=== PATIENT | male | born 1970 | race Caucasian/White ===

== ENCOUNTER 2024-01-27 14:17 | Emergency (ER) | payer OTHER, SELFPAY ==
[2024-01-27 14:25] VITALS: BP 152/85; BMI 29.3
[2024-01-27 14:39] LABS: % Basophils 0.3 % (0-2); % Eosinophils 1.1 % (0-6); % Immature Granulocytes 0.2 % (0-0.5); % Lymphocytes 34.7 % (20.5-51.1); % Monocytes 10.1 % (1.7-9.3); % Neutrophils 53.6 % (42.2-75.2); Absolute Eosinophils 0.1 10^3/uL (0-0.7); Absolute Lymphocytes 2.2 10^3/uL (1.2-3.4); Absolute Monocytes 0.7 10^3/uL (0.1-0.6); Absolute Neutrophils 3.4 10^3/uL (1.4-6.5); Hematocrit 41.2 % (39.0-52.0); Hemoglobin 14.2 g/dL (13.0-18.0); Mean Corp Hgb Conc. 34.5 g/dL (33.0-37.0); Mean Corpuscular Hgb 29.8 pg (27.0-31.0); Mean Corpuscular Volume 86.6 fL (80.0-94.0); Mean Platelet Volume 8.8 fL (7.4-10.4); Nucleated Red Blood Cells % 0 % (-); Platelet Count 254 10^3/uL (130-400); Red Blood Cell Count 4.76 10^6/uL (4.70-6.10); Red Cell Dist. Width 12.9 % (11.5-14.5); White Blood Cell Count 6.4 10^3/uL (4.8-10.8)
[2024-01-27 14:56] LABS: ALT (SGPT) 20 U/L (0-50); AST (SGOT) 28 U/L (17-59); Albumin 4.7 g/dl (3.5-5.0); Alkaline Phosphatase 59 U/L (38-126); Blood Urea Nitrogen 19 mg/dl (9-20); Calcium 9.6 mg/dl (8.4-10.2); Carbon Dioxide 30 mmol/L (22-30); Chloride 103 mmol/L (98-107); Estimated Creatinine Clearance 84 ml/min; Glucose 107 mg/dl (70-99); Potassium 5.3 mmol/L (3.5-5.1); Sodium 138 mmol/L (135-145); Total Protein 7.6 g/dl (6.3-8.2); eGFR > 60.00
[2024-01-27 15:02] LABS: Troponin I < 0.012 ng/ml
--- NOTE | 2024-01-27 17:30 | ED.GENMED ---
History of Present Illness
General
Chief Complaint: Chest Pain
Source: patient
Time Seen by Provider: 01/27/24 17:18
History of Present Illness
History of Present Illness:
This patient is a very pleasant 53-year-old male with complaints of 'pain under my rib cage', referring to the left anterior chest described as 'burning' also described as tight' that comes and goes lasting 20 to 30 minutes at a time and then fully
resolving. Sometimes he feels better when he just lays down, and says it will go away. He denies associated dyspnea, diaphoresis, back pain, neck pain, dizziness, jaw pain, or other abnormalities. Patient also reports headache, described as
left-sided, behind the eye
Past History
Past History
ED Past Medical History: None
ED Past Surgical History: Urological
Social History
Tobacco: Non-smoker
Alcohol: Occasional
Drug: None
Personal:
Living: with family
Phy Exam
Physical Exam
Physical Exam:
GENERAL: Alert , in no apparent distress
EYE: pupils equal and reactive, EOMI, no nystagmus, no photophobia
NECK: Supple, no significant adenopathy.
ENT: o/p clr, mmm.
CARDIAC: Regular rate and rhythm .
LUNGS: Clear breath sounds bilaterally, no acute respiratory distress, no wheezes/rales/rhonchi
ABDOMEN: Soft, without focal tenderness, no r/g, no cvat
NEUROLOGICAL: Alert and oriented, no focal neuro deficits, [id number] normal, motor 5 out of 5, sensory intact, cranial nerves II through XII intact
SKIN: Warm and dry, skin intact.
MUSCULOSKELETAL: No edema, well perfused.
PSYCH: Normal and appropriate interaction.
Scores
Heart Score for Chest Pain Patients
STEMI patient?: Not applicable
Course
Orders/Labs/Results
Orders:
Orders
01/27/24 14:19
ECG [Electrocardiogram (*1)] Urgent
Reason for Study: Chest Pain
01/27/24 14:20
EKG- Treatment ONCE
01/27/24 14:[address] [CT Head W/o Iv Contrast] Urgent
Comment:
Reason For Exam: pain
01/27/24 14:33
Complete Blood Count/With Diff Urgent
Comprehensive Metabolic Panel Urgent
Troponin I Urgent
01/27/24 17:43
Troponin I Urgent
Abnormal Lab Results
01/27/24
14:33
Absolute Monos (auto) 0.7 H 10^3/uL
(0.1-0.6)
Monocytes % 10.1 H %
(1.7-9.3)
Potassium 5.3 H mmol/L
(3.5-5.1)
Glucose 107 H mg/dl
(70-99)
01/27/24 14:33
01/27/24 14:33
Vital Signs
Initial and Last Documented VS:
Initial Vital Signs
Temp Pulse Resp BP Pulse Ox
98.1 F 69 18 152/85 100
01/27/24 14:25 01/27/24 14:25 01/27/24 14:25 01/27/24 14:25 01/27/24 14:25
Last Documented Vital Signs
Temp Pulse Resp BP Pulse Ox
98.1 F 86 18 132/86 100
01/27/24 14:25 01/27/24 19:01 01/27/24 14:25 01/27/24 19:01 01/27/24 19:01
*Critical Care Note
Total Time (30-74mins, 75-104mins- exclusive of procedures): Not Applicable
Update Note
Update Note:
Patient presents to the Emergency Department with __chest pain and headache
Number and Complexity of Problems Addressed at the Encounter
� Chronic conditions affecting care:
� Acute Exacerbation and/or Progression of Chronic Illness:
� Differential Diagnosis includes: But not limited to muscular strain, tension, ACS, migraine, etc. etc.
Amount and/or Complexity of Data to be Reviewed and Analyzed
� I performed an independent evaluation of and my interpretation is:
EKG: Read by me, normal sinus rhythm, normal rate, no acute ischemia
CT: Read by radiology NAD
Xrays:
Laboratory Studies: Generally unremarkable, first troponin normal, repeat troponin NEG
Other:
� Review of other/old records reveals:
� Clinical information was obtained by an independent historian:
� Prescriptions/Medications Considered but not given:
� Further testing considered but not performed:
Risk of Complications and/or Morbidity or Mortality of Patient Management
� Social determinants of health affecting care:
� Discussion with other providers (PCP, Hospitalists, Consultants, etc):
� Escalation of care including admission/observation vs risk of discharge considered: pt with several complaints, w/u here unremarkable, doubt acute neurologic process (ex. tia/cva/sah, etc based on hx, nl exam,etc.) or
acs/dissection/pe etc.
ED Attending Note
-
Portions of this chart may have been created with voice recognition software.� Occasional wrong word or��sound alike� substitutions may have occurred due to the inherent limitations of voice recognition software.
Discharge Plan
Departure
Patient Disposition: Home (Routine Discharge)
Date of Disposition: 01/27/24
Time of Disposition: 18:49
Patient with high blood pressure during this ER visit?: Yes
Condition: Good
Discharge Problem:
Headache, Chest pain
Instructions: Headache, Adult ED, Chest Pain PCP Follow Up, BLOOD PRESSURE
Referrals:
Syeda Westfall CRNP [Family Provider] - Follow up in 2-3 days
Activity Restrictions/Additional Instructions:
IF YOU DEVELOP RECURRENT/NEW CHEST PAIN OR HEADACHE, NUMBNESS, WEAKNESS, CHANGE IN VISION/SPEECH/BALANCE, FEVER, VOMITING, OR OTHER WORRISOME SIGNS, GO TO THE ER IMMEDIATELY!
Interventions
Interventions:
*Risk Screen - Suicide Last Done: 01/27/24 14:25
*General Assessment Last Done: 01/27/24 17:45
*Neglect/Abuse Screening Last Done: 01/27/24 14:25
ED- Fall Risk Assessment Last Done: 01/27/24 14:25
*Nursing Disposition Last Done: 01/27/24 19:01
ED- Cardiac Assessment Last Done: 01/27/24 17:44
Discharge Date and Time
Discharge Date/Time: 01/27/24 19:02
Print Language: INDONESIAN
[2024-01-27 17:45] VITALS: BP 160/106
[2024-01-27 18:14] LABS: Troponin I < 0.012 ng/ml
[2024-01-27 19:01] VITALS: BP 132/86
== END 2024-01-27 19:02 | disposition home or self-care (01) ==
LOC: EMR 14:17
PROVIDERS: Student in an Organized Health Care Education/Training Program; EMERGENCY PHYSICIAN Emergency Medicine; FAMILY PHYSICIAN Nurse Practitioner Family
DX: R51.9 Headache, unspecified (principal); R07.89 Other chest pain; Z86.73 Personal history of transient ischemic attack (TIA), and cerebral infarction without residual deficits
CPT/HCPCS: 99284; 70450; 80053; 84484; 85025; 93005

== ENCOUNTER → 2024-03-15 09:57 | Outpatient (REF) | payer OTHER, SELFPAY | LOC: WDC 09:57 | PROVIDERS: ATTENDING PHYSICIAN Family Medicine | DX: R59.0 Localized enlarged lymph nodes (principal); I88.9 Nonspecific lymphadenitis, unspecified; M79.622 Pain in left upper arm; N64.4 Mastodynia | CPT/HCPCS: 76642; 77062; 77066 ==

== ENCOUNTER → 2024-06-12 14:33 | Outpatient (REF) | payer OTHER, SELFPAY | LOC: HWRAD 14:33 | PROVIDERS: ATTENDING PHYSICIAN Nurse Practitioner Family | DX: R10.32 Left lower quadrant pain (principal) | CPT/HCPCS: 76870; 76882; 93976 ==

== ENCOUNTER 2025-06-01 19:22 | Emergency (ER) | payer OTHER, SELFPAY ==
[2025-06-01 19:24] VITALS: BP 168/94
[2025-06-01] MEDS: CARAFATE SUSPENSION 1 GM PO (21:10)
--- NOTE | 2025-06-01 21:10 | ED.GENMED ---
History of Present Illness
General
Chief Complaint: Abdominal Pain
Source: patient
Exam Limitations: none
Time Seen by Provider: 06/01/25 20:21
Nursing documentation reviewed up to this point in time: agreed with
History of Present Illness
History of Present Illness:
54-year-old male presenting to the emergency department today with concerns of upper abdominal pain intermittent over the past few months. Describes it as a burning tightness mainly to the upper abdomen and left upper quadrant. She has been
somewhat worse after eating. Has been taking omeprazole without relief. Denies any chest pain shortness of breath changes in bowel movements denies any vomiting. Does have some nausea.
Past History
Past History
ED Past Medical History: None
ED Past Surgical History: Urological
Social History
Tobacco: Non-smoker
Alcohol: Occasional
Drug: None
Personal:
Living: with family
Review of Systems
Review of Systems
Allergies reviewed?: Yes
All Other Systems: ROS reviewed and negative except as documented in HPI and ROS
Phy Exam
Physical Exam
Physical Exam:
GENERAL: Alert , in no apparent distress
EYE: pupils equal and reactive
NECK: Supple, no significant adenopathy.
ENT: o/p clr, mmm.
CARDIAC: Regular rate and rhythm .
LUNGS: Clear breath sounds bilaterally, no acute respiratory distress, no wheezes/rales/rhonchi
ABDOMEN: Soft, without focal tenderness, no r/g, no cvat
NEUROLOGICAL: Alert and oriented, no focal neuro deficits
SKIN: Warm and dry, skin intact.
MUSCULOSKELETAL: No edema, well perfused.
PSYCH: Normal and appropriate interaction.
Course
Orders/Labs/Results
Orders:
Orders
06/01/25 19:28
EKG [Electrocardiogram (*1)] Urgent
Reason for Study: Abdominal Pain
EKG- Treatment ONCE
06/01/25 20:57
Sucralfate Suspension [Carafate Suspension] 1 gm PO NOW STA
Vital Signs
Initial and Last Documented VS:
Initial Vital Signs
Temp Pulse Resp BP Pulse Ox
97.6 F 88 16 168/94 99
06/01/25 19:24 06/01/25 19:24 06/01/25 19:24 06/01/25 19:24 06/01/25 19:24
Last Documented Vital Signs
Temp Pulse Resp BP Pulse Ox
97.6 F 80 18 160/70 99
06/01/25 19:24 06/01/25 21:34 06/01/25 21:34 06/01/25 21:34 06/01/25 21:34
MDM/Problems Addressed
MDM/Problems Addressed:
54-year-old male presenting to the emergency department with concerns of ongoing upper abdominal pain nausea and burning over multiple months. Did have outpatient laboratory workup without acute findings. Negative lipase and liver function test.
Additionally patient has been followed with a primary care doctor. It was recommended for close follow-up with GI. No reproducible pain to the abdomen no evidence of acute abdominal process or surgical process. The risk and benefit of getting
imaging including CT scan was discussed with the patient. He elected to follow-up closely with GI and return for any worsening, new or concerning symptoms.
*Pulse Oximetry
SaO2: 99
Oxygen Mode of Delivery: Room air
Patient hypoxic: no (99)
*Critical Care Note
Total Time (30-74mins, 75-104mins- exclusive of procedures): Not Applicable
ED Attending Note
-
Portions of this chart may have been created with voice recognition software.� Occasional wrong word or��sound alike� substitutions may have occurred due to the inherent limitations of voice recognition software.
Discharge Plan
Departure
Patient Disposition: Home (Routine Discharge)
Date of Disposition: 06/01/25
Time of Disposition: 21:10
Patient with high blood pressure during this ER visit?: No
Condition: Good
Covid-19: Not Applicable
Discharge Problem:
Abdominal pain
Instructions: Abdominal Pain
Prescriptions:
New
sucralfate [Carafate] 1 gram tablet
1 g PO BID Qty: 14 0RF
Referrals:
El Guadarrama MD [Active, Gastroenterology] - Follow up in 5-7 days
Raleigh Lawrence CRNP [Family Provider, General]
Activity Restrictions/Additional Instructions:
You came to the emergency department today with concerns of abdominal pain. Please follow-up closely with GI and take prescribed medications. Return immediately for any worsening, new or concerning symptoms.
Interventions
Interventions:
*Risk Screen - Suicide Last Done: 06/01/25 19:24
*Neglect/Abuse Screening Last Done: 06/01/25 19:24
*ED- Fall Risk Assessment Last Done: 06/01/25 19:24
*Nursing Disposition Last Done: 06/01/25 21:34
SI-U[facility]om[facility]-Ufkonixmjx Assessment Last Done: 06/01/25 21:32
Discharge Date and Time
Print Language: TAJIK
[2025-06-01 21:34] VITALS: BP 160/70
== END 2025-06-01 22:40 | disposition home or self-care (01) ==
LOC: EMR 19:22
PROVIDERS: EMERGENCY PHYSICIAN Emergency Medicine; FAMILY PHYSICIAN Nurse Practitioner Family
DX: R10.10 Upper abdominal pain, unspecified (principal); R11.0 Nausea
CPT/HCPCS: 99283; 93005